=== PATIENT | male | born 1960 | race Caucasian/White ===

== ENCOUNTER 2016-11-16 14:03 | Emergency (ER) | payer OTHER ==
[~2016-11-16] VITALS: Ht 198.1 cm; Wt 127.5 kg
[~2016-11-16 14:03] MED LIST: DAPA1TAB2 PO; ERYT250C12 PO; GLUCTAB PO; LEVEMIR SQ; LISI10 PO; METO10TA PO; NOVOLOGSS SQ; POTA20IN3 PO; PROT40TA PO; ROSU40 PO
[2016-11-16 14:08] VITALS: BP 107/71; PULSE 71; RESP 18; TEMP 97.8; O2SAT 96
--- NOTE | 2016-11-16 14:16 | PD ---
HPI Chief Complaint: Laceration/Skin Injury Time Seen by Provider: 14:16 Travel History International Travel<30 days: No Contact w/Intl Traveler<30days: No Traveled to known affect area: No History of Present Illness HPI 56-year-old male presents to emergency Department with superficial laceration to the right distal anterior medial thigh while working on a bathroom for a friend, and utilizing a 6 and told saw which then jumped and caught him in the leg. Patient is up-to-date on his tetanus as of 2012. Patient has minimal pain and minimal bleeding. Patient has no other significant complaints. He has no known drug allergies. PFSH Past Medical History Asthma: No Autoimmune Disease: No Anxiety: No Depression: No Cancer: No Cardiovascular Problems: No High Cholesterol: Yes Chemotherapy: No COPD: No Cerebrovascular Accident: No Diabetes: Yes (INSULIN PUMP) Diminished Hearing: No Endocrine: Yes Gastrointestinal Disorders: Yes (GERD) GERD: No Genitourinary: No Hepatitis: No Hiatal Hernia: No Hypertension: Yes Immune Disorder: No Kidney Stones: No Musculoskeletal: No Neurologic: Yes (NEUROPATHY TOES FEET) Psychiatric: No Reproductive: No Respiratory: Yes (sleep apnea, CPAP) Migraines: Yes (rarely) Radiation Therapy: No Renal Failure: No Seizures: No Sickle Cell Disease: Yes Sleep Apnea: Yes (uses CPAP at night at home) Thyroid Disease: No Ulcer: No Past Surgical History Abdominal Surgery: Yes (gastic sleeve placed) AICD: No Arteriovenous Shunt: No Body Medical Devices: INSULIN PUMP Cardiac Surgery: No Ear Surgery: No Endocrine Surgery: No Eye Surgery: No Genitourinary Surgery: No Insulin Pump: Yes (regular insulin 500) Joint Replacement: No Oral Surgery: Yes (wisdom teeth extracted) Pacemaker: No Thoracic Surgery: No Other Surgery: Yes (R and L knee meniscus repair) Social History Alcohol Use: Yes (SOCIALLY) Tobacco Use: No Substance Use: No Allergies-Medications (Allergen,Severity, Reaction): Coded Allergies: No Known Allergies (Verified , 11/16/16) Reported Meds & Prescriptions Reported Meds & Active Scripts Active Reported Novolog Inj (Insulin Aspart) 1,000 Unit/10 Ml Vial 0 SQ DIRECTED Sliding Scale as directed. Gabapentin 100 Mg Cap Unknown Dose PO HS Crestor (Rosuvastatin Calcium) 40 Mg Tab 40 Mg PO DAILY Review of Systems Except as stated in HPI: all other systems reviewed are Neg General / Constitutional: No: Fever Eyes: No: Visual changes HENT: No: Headaches Cardiovascular: No: Chest Pain or Discomfort Respiratory: No: Shortness of Breath Gastrointestinal: No: Abdominal Pain Genitourinary: No: Dysuria Musculoskeletal: No: Pain Skin: Positive Lesions (see history present illness.), No Rash Neurologic: No: Weakness Psychiatric: No: Depression Endocrine: No: Polydipsia Hematologic/Lymphatic: No: Easy Bruising Physical Exam Narrative GENERAL: Patient is a no acute distress. SKIN: Warm and dry. Normal color. Normal turgor. Patient has a 6 cm superficial linear laceration to the right anterior medial thigh just above the knee. It is not full-thickness, but would benefit from suturing where it is near the joint. HEAD: Atraumatic. Normocephalic. EYES: Pupils equal and round. No scleral icterus. No injection or drainage. ENT: No nasal bleeding or discharge. Mucous membranes pink and moist. Pharynx is normal. NECK: Trachea midline. Supple CARDIOVASCULAR: Regular rate and rhythm. RESPIRATORY: No accessory muscle use. Clear to auscultation. Breath sounds equal bilaterally. MUSCULOSKELETAL: Extremities without clubbing, cyanosis, or edema. No obvious deformities. NEUROLOGICAL: Awake and alert. No obvious cranial nerve deficits. Motor grossly within normal limits. Five out of 5 muscle strength in the arms and legs. Normal speech. PSYCHIATRIC: Appropriate mood and affect; insight and judgment normal. Data Data Last Documented VS Vital Signs Date Time Temp Pulse Resp B/P Pulse Ox O2 Delivery O2 Flow Rate FiO2 11/16/16 14:08 97.8 71 18 107/71 96 Orders Lidocai-Epi 1%-1:100,000 Inj (Xylocaine- (11/16/16 14:30) [facility] Medical Decision Making Medical Screen Exam Complete: Yes Emergency Medical Condition: Yes Differential Diagnosis Skin injury from power tool. Laceration. Need for sutures. Narrative Course Patient is medically stable at time of exam. Laceration repaired. See procedure note. Dressing should remain in place as long as possible as discussed. Sutures should remain in place for at least 10 days. Follow with primary care physician or return to emergency Department with any worsening symptoms as needed. Procedures Procedure Narrative LACERATION LOCATION: Right distal medial thigh LENGTH: 6 cm NUMBER OF STITCHES/ROHAN: 5 simple interrupted REPAIR: The area of the laceration was prepped with Betadine and sterilely draped. The laceration was infiltrated with 4 mL. The wound was copiously irrigated and explored without evidence of foreign body, tendon injury or neurovascular injury. The wound was closed using 5-0 Prolene. This was a single layer repair. A sterile dressing was applied. The patient was advised to keep the dressing clean and dry. Patient tolerated the procedure well. Diagnosis Primary Impression: Laceration of right thigh without complication Qualified Code: S71.111A - Laceration of right thigh without complication, initial encounter Patient Instructions: General Instructions, Laceration (ED) Additional Instructions: Dressing should remain in place as long as possible as discussed. Sutures should remain in place for at least 10 days. Follow with primary care physician or return to emergency Department with any worsening symptoms as needed. Med/Other Pt SpecificInfo: No Meds Exist/No RX given, Wound Care Disposition: 01 DISCHARGE HOME Condition: Stable Jarett Gaffney Nov 16, 2016 14:16
[2016-11-16] MEDS ORDERED: LIDOCAINE 1%/EPINEPHrine 1:100,000 SOLN 20 ML VIAL INFIL ONE (14:30)
[2016-11-16] MEDS ORDERED: ROSU40 PO (14:57)
[2016-11-16] MEDS ORDERED: GABA100C4 PO (14:57)
[2016-11-16] MEDS ORDERED: NOVOLOGP2 SQ (14:57)
== END 2016-11-16 15:14 | disposition home or self-care (01) ==
LOC: PHEFT 14:03
DX: S71.111A Laceration without foreign body, right thigh, initial encounter (principal); E78.00 Pure hypercholesterolemia, unspecified; E11.9 Type 2 diabetes mellitus without complications; I10 Essential (primary) hypertension; D57.1 Sickle-cell disease without crisis; Z79.4 Long term (current) use of insulin; Z96.41 Presence of insulin pump (external) (internal); W29.8XXA Contact with other powered hand tools and household machinery, initial encounter; Y92.89 Other specified places as the place of occurrence of the external cause
CPT/HCPCS: 12002